=== PATIENT | male | born 1940 | race Caucasian/White ===

== ENCOUNTER 2017-01-09 06:29 | Emergency (ER) | payer MEDICARE, OTHER ==
[~2017-01-09] VITALS: Ht 180.3 cm; Wt 80.0 kg
[2017-01-09 06:55] VITALS: BP 122/74; PULSE 88; RESP 17; TEMP 98; O2SAT 97
[2017-01-09] MEDS ORDERED: ASPI1TAB69 PO (07:09)
[2017-01-09] MEDS ORDERED: AMLO5 PO (07:09)
[2017-01-09 07:24] LABS: BLOOD, URINE TRACE (NEG); GLUCOSE,URINE NEG (NEG); KETONE, URINE NEG (NEG); NITRITE,URINE NEG (NEG)
[2017-01-09 07:30] LABS: METHOD OF COLLECTION CLEAN CATCH; URINE COLOR YELLOW (YELLW/STRAW)
[2017-01-09 07:31] LABS: COMMENT (UR) CULT NOT INDICATED; CULTURE IF INDICATED CULT NOT INDICATED; RBC, URINE 0-3 /hpf (0-3); SQUAMOUS EPITHELIAL CELL URINE 0-5 /hpf (0-5)
--- NOTE | 2017-01-09 07:31 | RADHPO ---
EXAM DATE/TIME: 01/09/2017 07:10 [place] COMPARISON: No previous studies available for comparison. INDICATIONS : Cough MEDICAL HISTORY : Pneumonia SURGICAL HISTORY : None. ENCOUNTER: Initial ACUITY: 2 weeks PAIN SCORE: 2/10 LOCATION: Bilateral chest FINDINGS: PA and lateral views of the chest demonstrate faint increased density overlying the left hemidiaphrag m could be a subtle basilar infiltrate versus chronic scarring. The cardiomediastinal contours are u nremarkable. Osseous structures are intact. CONCLUSION: Subtle increased density overlying the left hemidiaphragm could be a small infiltrate or chronic atel ectasis. Mckinley Soto MD on January 09, 2017 at 7:29 Board Certified Radiologist. This report was verified electronically.
--- NOTE | 2017-01-09 07:35 | PD ---
HPI Chief Complaint: Cold / Flu Symptoms Time Seen by Provider: 07:05 Travel History International Travel<30 days: Yes Contact w/Intl Traveler<30days: Yes Name of Country Traveled to: [place] Traveled to known affect area: No History of Present Illness HPI 76 y/o male presents with cough and congestion over the past 3-4 days and 2 days ago developed pain and back pain when he coughs or moves. He denies any other concurrent complaints or modifying factors. He denies any specific sick contacts. Quality is frequent cough. He states if he lays flat he feels congestion coming down from his nose. PFSH Past Medical History Diminished Hearing: No Hypertension: Yes Tetanus Vaccination: Unknown Influenza Vaccination: Yes Past Surgical History Tonsillectomy: Yes Social History Alcohol Use: Yes (rarely) Tobacco Use: No (former) Substance Use: No Allergies-Medications (Allergen,Severity, Reaction): Coded Allergies: No Known Allergies (Unverified , 01/09/17) Reported Meds & Prescriptions Reported Meds & Active Scripts Active Zithromax Z-Sergo (Azithromycin) 250 Mg Dspk 250 Mg PO DIRECTED 500 MG (2 tabs) day 1, then 1 tab days 2-5. Reported Aspirin 81 Mg Tabdr 81 Mg PO DAILY Norvasc (Amlodipine Besylate) 5 Mg Tab 5 Mg PO DAILY Review of Systems Except as stated in HPI: all other systems reviewed are Neg Physical Exam Narrative General: No apparent distress, well appearing ENT: mmm Neck: Neck is supple, no meningeal signs, trachea is midline Cardiovascular: Regular rate and rhythm Lungs: No increased respiratory effort noted, CTA bilaterally Abdomen: Soft, NT, ND, no rebound or guarding Back: No step-offs, midline spine nontender, no CVA tenderness, mild pain to mid lumbar paraspinal area Extremities: No edema Neuro: Awake, motor and sensation grossly intact, normal speech Data Data Last Documented VS Vital Signs Date Time Temp Pulse Resp B/P Pulse Ox O2 Delivery O2 Flow Rate FiO2 01/09/17 07:10 88 18 97 Room Air 01/09/17 06:55 98.0 122/74 Orders Chest, Pa & Lat (01/09/17 ) Influenzae A/B Antigen (01/09/17 07:06) Urinalysis - C+S If Indicated (01/09/17 07:06) Labs Laboratory Tests Test 01/09/17 07:10 Urine Collection Type CLEAN CATCH Urine Color YELLOW Urine Turbidity CLEAR Urine pH 6.0 Urine Specific [place] 1.012 Urine Protein NEG mg/dL Urine Glucose (UA) NEG mg/dL Urine Ketones NEG mg/dL Urine Occult Blood TRACE Urine Nitrite NEG Urine Bilirubin NEG Urine Leukocyte Esterase NEG Urine RBC 0-3 /hpf Urine Squamous Epithelial 0-5 /hpf Cells Microscopic Urinalysis Comment CULT NOT INDICATED Urine Collection Time 0710 [facility] Medical Decision Making Medical Screen Exam Complete: Yes Emergency Medical Condition: Yes Medical Record Reviewed: Yes (past history confirmed) Interpretation(s) Last 24 hours Impressions Chest X-Ray 01/09/17 0000 Signed Impressions: Service Date/Time: Monday, January 09, 2017 07:10 - CONCLUSION: Subtle increased density overlying the left hemidiaphragm could be a small infiltrate or chronic atelectasis. Mckinley Soto MD Differential Diagnosis Pneumonia, influenza, strep, upper respiratory infection, musculoskeletal, UTI Narrative Course Will check chest x-ray, influenza, urinalysis and reevaluate. Patient agrees to workup as ordered. Patient agrees to treatment given symptoms.Patient denies any new complaints, all questions answered. Patient knows that follow up is incumbent on them and to return to the emergency room immediately if new or worsening symptoms develop. Patient given strict return precautions, vitals reviewed and are normal , agrees to further workup as an outpatient. Diagnosis Primary Impression: Pneumonia Qualified Code: J18.1 - Pneumonia of left lower lobe due to infectious organism Patient Instructions: General Instructions Additional Instructions: take antibiotic as directed, return as needed, alternate Tylenol and Motrin, follow with primary in next 1-2 days Med/Other Pt SpecificInfo: Prescription(s) given Scripts Azithromycin (Zithromax Z-Sergo)250 Mg [id number] Mg PO DIRECTED #1 DSPK 500 MG (2 tabs) day 1, then 1 tab days 2-5. Prov:Libby Toribio MD 01/09/17 Disposition: 01 DISCHARGE HOME Condition: Stable Libby Toribio MD Jan 09, 2017 07:34
[2017-01-09] MEDS ORDERED: ZITHTAB PO (07:36)
== END 2017-01-09 07:49 | disposition home or self-care (01) ==
LOC: PHED 06:29
DX: J18.9 Pneumonia, unspecified organism (principal); I10 Essential (primary) hypertension
CPT/HCPCS: 71020; 81001; 87804; 99283